=== PATIENT | female | born 1990 | race Caucasian/White ===

== ENCOUNTER → 2016-12-23 | Outpatient (CLI) | payer BC ==
[2016-12-23 10:16] LABS: HEMATOCRIT 42.7 % (37-47); MEAN CELL VOLUME 85.6 fL (80-100); MEAN CORPUSCULAR HEMOGLOBIN 28.1 pg (25-34); MEAN CORPUSCULAR HGB CONC 32.8 g/dl (32-36); MEAN PLATELET VOLUME 9.8 fL (7.4-10.4); PLATELET COUNT 326 K/uL (130-400); RED BLOOD COUNT 4.99 M/uL (4.2-5.4)
== END | disposition home or self-care (01) ==
LOC: C.LAB1850 09:08
PROVIDERS: ATTEND Physician Assistant
DX: R53.83 Other fatigue (principal)

== ENCOUNTER 2019-02-21 16:47 | Inpatient (IN) ==
[2019-02-21] MEDS ORDERED: OXYTOCIN 30 UNITS/500 ML BAG IV PRN ×3 (17:00→17:14)
--- NOTE | 2019-02-21 17:07 | History & Physical Report ---
Date of Service February 21, 2019 History of Present Illness Primary Care Provider: NO PCP patient is a Allergies Allergy/AdvReac Type Severity Reaction Status Date / Time No Known Drug Allergies Allergy Verified 02/21/19 16:18 Home Medications Home Medications Medication Instructions Recorded Confirmed Type 1 tab PO DAILY 01/15/19 02/21/19 History vitamin,calcium,txvbmtct-[id number] acid tablet Patient History Surgical History S/P tonsillectomy S/P wisdom tooth extraction Family History Uncle Family history of bicuspid aortic valve Grandmother (Paternal) Diabetes Grandfather (Maternal) Diabetes Grandmother (Maternal) Ovarian cancer Sister Thyroid disease Social History marital status: Smoking Status: Never smoker Hx Alcohol Use: No Results & Data Vital Signs (Past 12 Hours) Vital Signs Pulse BP 02/21/19 16:55 97 H 111/77 Code Status & VTE Plan VTE Prophylaxis Plan VTE Prophylaxis will be ordered: No
--- NOTE | 2019-02-21 17:31 | History & Physical Report ---
Date of Service February 21, 2019 Assessment & Plan (1) Bicuspid aortic valve: no special orders needed as there is no stenosis with normal function Present on Admission?: Yes (2) Amniotic fluid leaking: IUP at term with SPROM over 12 hours only irregular contractions now will start pitocin augmentation of labor. anticipate vaginal delivery. (3) 39 weeks gestation of : History of Present Illness Primary Care Provider: NO PCP Patient is a 28 yo white female EDC 03/03/19 who presents with leaking fluid since o530 this morning. no contractions but has been having some cramping. SPROM was confirmed at the office. GBS (-) complicated by bicuspid aortic valve. She recently was evaluated by cardiology & her echo shows normal function without stenosis. 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 Beliefs That Will Affect Care: None marital status: Current Living Situation: Spouse Other Information That Helps Us Care for You: No Feels Safe at Home: Yes Safety Concerns: Feels Safe At This Time Smoking Status: Never smoker Hx Alcohol Use: No Hx Substance Use: No Review of Systems All systems reviewed & are unremarkable except as noted in HPI & below Physical Exam Constitutional: WD/WN, vitals as above Respiratory: normal respiratory effort, lungs clear to auscultation Cardiovascular: RRR, no murmur, no edema Rate/Rhythm: regular rate and regular rhythm Gastrointestinal (Abdomen): normal bowel sounds, soft, nontender, no hepatosplenomegaly Psychiatric: A+Ox3, euthymic affect Genitourinary: Manual OB Exam: + cervical dilation 1 cm, + cervical effacement 50% and + station -2 OB Exam Monitor Tracing: + external FHT monitor used, + external uterine monitor used, + category I and + normal FHT variability Results & Data Vital Signs (Past 12 Hours) Vital Signs Pulse BP 02/21/19 16:55 97 H 111/77 Code Status & VTE Plan VTE Prophylaxis Plan VTE Prophylaxis will be ordered: No
[2019-02-21 17:35] LABS: Hemoglobin 12.8 g/dL (12.0-16.0); Mean Corpuscular Volume 82.4 fL (80-100); Mean Platelet Volume 10.3 fL (7.4-10.4); Platelet Count 254 K/uL (130-400); RDW Coefficient of Variation 13.5 % (11.5-14.5); RDW Standard Deviation 40.4 fL (36.4-46.3); Red Blood Count 4.49 M/uL (4.2-5.4); White Blood Count 19.24 K/uL (4.8-10.8)
[2019-02-21] MEDS: LACTATED RINGER'S 1,000 ML IV PRN ×2 (17:35→22:10)
[2019-02-21 17:45] LABS: Mean Corpuscular Hgb Conc 34.6 g/dL (32-36)
[2019-02-21] MEDS ORDERED: BUPIVACAINE 0.25% 30 ML VIAL ONE (23:14)
[2019-02-21] MEDS ORDERED: fentaNYL citrate 100 MCG/2 ML VIAL ONE (23:14)
[2019-02-21] MEDS ORDERED: ePHEDrine sulfate 50 MG/ML AMP ONE (23:14)
[2019-02-21] MEDS ORDERED: fentaNYL 2MCG/ML ROPIV 1.25MG/ML 100 ML BAG EPI ONE (23:15)
--- NOTE | 2019-02-21 23:50 | Anesthesiology Consultation ---
Date of Service February 21, 2019 Assessment & Plan Chart Review Chart Review: Patient NOT seen in Pre Admission Testing and Acceptable Risk for Labor Epidural Consults Requested none ASA ASA2 Proposed Anesthesia Anesthesia Type: Labor Epidural and CSE Risk / Benefits Reviewed With: PT / POA / Parent / Guardian, Accepts Plan and Informed Consent Obtained History Height/Weight Height: 5 ft 1 in Weight: 68.039 kg Allergies Allergy/AdvReac Type Severity Reaction Status Date / Time No Known Drug Allergies Allergy Verified 02/21/19 16:18 Medications Home Medications Medication Instructions Recorded Confirmed Last Taken 1 tab PO DAILY 01/15/19 02/21/19 02/21/19 vitamin,calcium,cpactsjj-zpqx-stmuj acid tablet Active Medications Generic Name Dose Route Start Last Admin Trade Name Freq PRN Reason Stop Dose Admin Lactated Ringer's 1,000 mls @ 125 mls/hr 02/21/19 17:00 02/21/19 22:10 Lr IV 02/23/19 16:59 125 mls/hr .Q8H PRN Administration L&D Protocol Protocol Oxytocin 30 units in 500 mls @ 5 mls/hr 02/21/19 17:06 02/21/19 22:10 Pitocin IV 02/23/19 17:05 0.3 units/hr .Q24H PRN 5 mls/hr Labor Induction/Augmentation Titration Protocol 0.3 UNITS/HR NPO Date Last Intake of Fluids: 02/21/19 Time Last Intake of Fluids: 23:00 Date Last Intake of Solids: 02/21/19 Time Last Intake of Solids: 05:00 Past Medical History Medical History Bicuspid aortic valve (Acute) (Acute) History of varicella Exercise / Class Metabolic Activity II 4-5 Yardwork/Stairs/Walk up hill Past Family History Family History Uncle Family history of bicuspid aortic valve Grandmother (Paternal) Diabetes Grandfather (Maternal) Diabetes Grandmother (Maternal) Ovarian cancer Sister Thyroid disease Past Surgical History Surgical History S/P tonsillectomy S/P wisdom tooth extraction Past Anesthesia History No Hx of Anesthesia Complications and No Family Hx of Anesthesia Complications History of PONV No Hx of PONV and No Hx of Motion Sickness Social History Smoking Status: Never smoker Hx Alcohol Use: No Hx Substance Use: No substance use type: does not use Review of Systems no chest pain or sob Physical Exam Vital Signs Last Vital Signs Temp 37.0 C 02/21/19 21:00 Pulse 80 02/21/19 23:35 Resp 20 02/21/19 22:45 BP 108/62 02/21/19 22:49 Pulse Ox 99 02/21/19 23:35 ENMT Mouth: no TMJ abnormality Thyromental Distance: > or= 3.5 Finger Breadths Mallampati Class: II Neck normal visual inspection Respiratory normal respiratory effort Auscultation: lungs clear to auscultation bilaterally Cardiovascular Rate/Rhythm: regular rate and regular rhythm Musculoskeletal Spine: normal cervical ROM Neurologic moves all extremities Psychiatric Orientation: alert and oriented x 3 Testing Laboratory Results 02/21/19 17:19
[2019-02-21] MEDS ORDERED: NALOXONE HCL 1 MG in SODIUM CHLORIDE 0.9% 1000ML 1,000 ML IV PRN (23:51)
[2019-02-21] MEDS ORDERED: NALOXONE HCL 0.4 MG/1 ML VIAL/CARP IV PRN (23:51)
[2019-02-21] MEDS ORDERED: DiphenhydrAMINE HCL 50 MG/ML VIAL IV PRN (23:51)
[2019-02-21] MEDS ORDERED: NALBUPHINE HCL INJ 10 MG/ML AMP IV PRN (23:51)
[2019-02-21] MEDS ORDERED: ONDANSETRON INJ 2 MG/ML 2 ML VIAL IV PRN (23:51)
[2019-02-22] MEDS: LACTATED RINGER'S 1,000 ML IV PRN ×3 (00:15→09:50)
[2019-02-22] MEDS: ePHEDrine sulfate 50 MG/ML AMP IV PRN ×2 (01:25→06:54)
[2019-02-22] MEDS ORDERED: fentaNYL 2MCG/ML ROPIV 1.25MG/ML 100 ML BAG EPI ONE ×2 (07:51→13:37)
[2019-02-22] MEDS: fentaNYL 2MCG/ML ROPIV 1.25MG/ML 100 ML BAG EPI PRN ×2 (07:54→13:39)
--- NOTE | 2019-02-22 08:59 | Labor Progress Brief Note ---
Date of Service February 22, 2019 Subjective Reason For Note: Other (Change of shift) The patient is a 28-year-old 1 para 0 with an EDC of 03 March at 38+ weeks gestational age who was admitted on 21 February with spontaneous rupture membranes. Membranes ruptured at approximately 05 30 on 21 February. The patient was seen in the office for routine OB check where rupture of membranes was diagnosed and the patient was sent to labor and delivery for evaluation. The patient was admitted here and started on Pitocin per induction protocol. She received an epidural for pain control. The patient's heart rate tracing had episodes of category 3 with decelerations requiring discontinuation of Pitocin. Pitocin was discontinued and tracing has stabilized category 2 with accelerations and good variability. Physician assuming care for the patient at this point. Patient had an unremarkable course. Her blood type is a\A positive, antibody negative, rubella immune, hepatitis B negative, negative cell free DNA screening, and negative MSAFP, normal 1 hour Glucola x2, and a negative third trimester beta strep culture. Assessment & Plan (1) Supervision of normal first : heart rate tracing category 2 with good variability and accelerations. Intrauterine pressure catheter placed to assess uterine activity. Intrauterine pressure catheter placed to evaluate contraction pattern. Contractions every 5 minutes mild at 25 mmHg of pressure. With the prolonged rupture of membranes Pitocin augmentation is necessary to progress the labor. Will start Pitocin per induction protocol and increase. Discussed plan with patient and her significant other. All questions answered. (2) Amniotic fluid leaking: Physical Exam Gastrointestinal (Abdomen): Gravid, vtx, (+) FHT's EFW 8 lbs Genitourinary: OB Exam Monitor Tracing: + category II Cervix: 6/100/0, IUPC placed Results & Data Vital Signs (Past 12 Hours) Vital Signs Temp Pulse Resp BP Pulse Ox 02/22/19 08:50 101 H 97 02/22/19 08:45 90 103/59 L 98 02/22/19 08:40 106 H 96 02/22/19 08:35 105 H 96 02/22/19 08:30 107 H 97 02/22/19 08:29 100 H 99/70 L 02/22/19 08:25 99 H 95 02/22/19 08:20 109 H 97 02/22/19 08:16 105 H 20 98/68 L 02/22/19 08:15 106 H 96 09/05/19 08:10 85 95 02/22/19 08:05 99 H 95 02/22/19 08:01 20 02/22/19 08:00 90 96 02/22/19 07:59 100 H 103/66 02/22/19 07:55 99 H 94 02/22/19 07:50 104 H 97 02/22/19 07:46 20 02/22/19 07:45 83 101/60 95 02/22/19 07:40 96 H 94 02/22/19 07:35 95 H 96 02/22/19 07:31 20 02/22/19 07:30 82 90/53 L 97 02/22/19 07:25 91 H 96 02/22/19 07:20 88 97 02/22/19 07:15 102 H 20 100 02/22/19 07:14 92 H 107/65 02/22/19 07:10 74 99 02/22/19 07:08 86 102/57 L 02/22/19 07:05 98.2 F 74 20 99 02/22/19 07:04 79 101/56 L 02/22/19 07:00 71 18 99 02/22/19 06:58 77 104/56 L 02/22/19 06:56 71 99/56 L 02/22/19 06:55 65 100 02/22/19 06:54 71 91/52 L 02/22/19 06:50 73 99 02/22/19 06:47 69 83/46 L 02/22/19 06:45 68 99 02/22/19 06:40 89 94 02/22/19 06:35 91 H 96 02/22/19 06:33 88 90/50 L 02/22/19 06:30 100 H 18 95 02/22/19 06:25 85 94 02/22/19 06:20 90 94 02/22/19 06:18 86 92/54 L 02/22/19 06:15 89 95 02/22/19 06:14 98.6 F 02/22/19 06:10 88 96 02/22/19 06:05 90 96 02/22/19 06:03 85 103/60 02/22/19 06:00 79 18 95 02/22/19 05:55 96 H 96 02/22/19 05:50 107 H 96 02/22/19 05:48 110 H 91/52 L 02/22/19 05:45 106 H 97 02/22/19 05:40 96 H 95 02/22/19 05:35 98 H 95 02/22/19 05:34 102 H 91/51 L 02/22/19 05:30 102 H 97 02/22/19 05:25 93 H 96 02/22/19 05:20 113 H 96 02/22/19 05:18 100 H 91/50 L 02/22/19 05:15 93 H 95 02/22/19 05:10 90 95 02/22/19 05:05 106 H 97 02/22/19 05:03 97 H 93/52 L 02/22/19 05:00 92 H 18 96 02/22/19 04:55 92 H 97 02/22/19 04:50 101 H 97 02/22/19 04:48 107 H 92/54 L 02/22/19 04:45 111 H 97 02/22/19 04:40 89 96 02/22/19 04:35 90 95 02/22/19 04:32 88 92/54 L 02/22/19 04:30 85 18 95 02/22/19 04:25 92 H 95 02/22/19 04:20 92 H 96 02/22/19 04:18 90 96/51 L 02/22/19 04:15 88 96 02/22/19 04:10 102 H 97 02/22/19 04:08 98.6 F 02/22/19 04:05 99 H 97 02/22/19 04:03 110 H 101/62 02/22/19 04:00 94 H 18 97 02/22/19 03:55 78 96 02/22/19 03:50 75 95 02/22/19 03:47 86 91/50 L 02/22/19 03:45 79 96 02/22/19 03:40 84 97 02/22/19 03:35 97 H 96 02/22/19 03:33 81 100/53 L 02/22/19 03:30 82 18 96 02/22/19 03:25 97 H 96 02/22/19 03:20 86 99 02/22/19 03:19 103 H 106/67 02/22/19 03:15 110 H 98 02/22/19 03:10 106 H 96 02/22/19 03:05 92 H 96 02/22/19 03:02 106 H 95/51 L 02/22/19 03:00 85 18 95 02/22/19 02:55 86 97 02/22/19 02:50 86 95 02/22/19 02:48 99 H 92/55 L 02/22/19 02:45 94 H 94 02/22/19 02:40 112 H 96 02/22/19 02:35 84 95 02/22/19 02:32 100 H 94/55 L 02/22/19 02:30 102 H 95 02/22/19 02:25 108 H 95 02/22/19 02:20 112 H 96 02/22/19 02:17 95 H 96/54 L 02/22/19 02:15 113 H 96 02/22/19 02:11 98.6 F 02/22/19 02:10 106 H 95 02/22/19 02:05 106 H 100 02/22/19 02:03 84 92/55 L 02/22/19 02:00 74 18 95 02/22/19 01:55 90 96 02/22/19 01:50 74 95 02/22/19 01:47 88 92/52 L 02/22/19 01:45 76 96 02/22/19 01:40 81 95 02/22/19 01:35 99 H 95 02/22/19 01:32 75 103/56 L 02/22/19 01:30 76 18 97 02/22/19 01:27 76 98/55 L 02/22/19 01:25 82 95 02/22/19 01:20 76 94 02/22/19 01:17 77 89/53 L 02/22/19 01:15 76 95 02/22/19 01:10 81 95 02/22/19 01:05 76 95 02/22/19 01:02 92 H 91/54 L 02/22/19 01:00 87 18 96 02/22/19 00:55 89 95 02/22/19 00:50 83 95 02/22/19 00:47 92 H 94/50 L 02/22/19 00:45 83 94 02/22/19 00:40 83 95 02/22/19 00:35 90 94 02/22/19 00:33 98.2 F 18 02/22/19 00:32 88 98/53 L 02/22/19 00:30 88 18 96 02/22/19 00:27 82 99/53 L 02/22/19 00:25 92 H 95 02/22/19 00:24 90 93 02/22/19 00:23 82 100/55 L 02/22/19 00:20 86 97 02/22/19 00:19 94 H 93/51 L 02/22/19 00:15 90 105/59 L 97 02/22/19 00:13 83 107/61 02/22/19 00:11 81 102/56 L 02/22/19 00:10 87 96 02/22/19 00:09 86 94/52 L 02/22/19 00:05 89 99 02/22/19 00:00 95 H 99 02/21/19 23:55 94 H 99 02/21/19 23:35 80 99 02/21/19 23:30 83 99 02/21/19 23:25 85 99 02/21/19 23:22 81 94 02/21/19 23:20 85 98 02/21/19 23:05 98.1 F 18 02/21/19 22:49 78 108/62 02/21/19 22:45 20 02/21/19 22:30 20 02/21/19 22:09 86 116/59 L 02/21/19 22:00 20 02/21/19 21:30 20 02/21/19 21:06 89 101/70 02/21/19 21:00 98.6 F 20
--- NOTE | 2019-02-22 12:21 | Labor Progress Brief Note ---
Date of Service February 22, 2019 Subjective Reason For Note: Routine Evaluation Assessment & Plan (1) 39 weeks gestation of : (2) Amniotic fluid leaking: - tracing Cat II - will begin 2nd stage Physical Exam Physical Exam: Cervix: Complete/(+)1 Results & Data Vital Signs (Past 12 Hours) Vital Signs Temp Pulse Resp BP Pulse Ox 02/22/19 12:15 92 H 99/57 L 94 02/22/19 12:10 78 96 02/22/19 12:05 82 94 02/22/19 12:01 20 02/22/19 12:00 90 96 02/22/19 11:59 79 97/60 L 02/22/19 11:55 79 97 02/22/19 11:50 80 97 02/22/19 11:46 65 101/60 02/22/19 11:45 77 98 02/22/19 11:40 96 H 97 02/22/19 11:35 88 99 02/22/19 11:31 98.4 F 20 02/22/19 11:30 76 93/55 L 99 02/22/19 11:25 117 H 99 02/22/19 11:20 87 97 02/22/19 11:16 83 112/70 02/22/19 11:15 85 96 02/22/19 11:10 91 H 97 02/22/19 11:05 97 H 96 02/22/19 11:01 16 02/22/19 11:00 97 H 97 02/22/19 10:59 107 H 104/70 02/22/19 10:55 110 H 96 02/22/19 10:50 84 96 02/22/19 10:46 20 02/22/19 10:45 94 H 96 02/22/19 10:44 93 H 102/64 02/22/19 10:40 94 H 95 02/22/19 10:35 99 H 96 02/22/19 10:31 16 02/22/19 10:30 87 102/62 95 02/22/19 10:25 83 96 02/22/19 10:20 83 96 02/22/19 10:16 87 103/64 02/22/19 10:15 92 H 95 02/22/19 10:10 88 95 02/22/19 10:05 94 H 96 02/22/19 10:00 98.4 F 86 20 101/63 96 02/22/19 09:55 82 96 02/22/19 09:50 90 99 02/22/19 09:47 20 02/22/19 09:46 82 111/65 02/22/19 09:45 81 100 02/22/19 09:40 87 100 02/22/19 09:35 92 H 100 02/22/19 09:31 20 02/22/19 09:30 84 110/72 100 02/22/19 09:25 89 100 02/22/19 09:20 96 H 98 02/22/19 09:15 76 97 02/22/19 09:14 73 92/50 L 02/22/19 09:10 74 97 02/22/19 09:05 75 96 02/22/19 09:01 97.9 F 20 02/22/19 09:00 87 91/53 L 97 02/22/19 08:55 104 H 98 02/22/19 08:50 101 H 97 02/22/19 08:47 20 02/22/19 08:45 90 103/59 L 98 02/22/19 08:40 106 H 96 02/22/19 08:35 105 H 96 02/22/19 08:31 20 02/22/19 08:30 107 H 97 02/22/19 08:29 100 H 99/70 L 02/22/19 08:25 99 H 95 02/22/19 08:20 109 H 97 02/22/19 08:16 105 H 20 98/68 L 02/22/19 08:15 106 H 96 02/22/19 08:10 85 95 02/22/19 08:05 99 H 95 02/22/19 08:01 20 02/22/19 08:00 90 96 02/22/19 07:59 100 H 103/66 02/22/19 07:55 99 H 94 02/22/19 07:50 104 H 97 02/22/19 07:46 20 02/22/19 07:45 83 101/60 95 02/22/19 07:40 96 H 94 02/22/19 07:35 95 H 96 02/22/19 07:31 20 02/22/19 07:30 82 90/53 L 97 02/22/19 07:25 91 H 96 02/22/19 07:20 88 97 02/22/19 07:15 102 H 20 100 02/22/19 07:14 92 H 107/65 02/22/19 07:10 74 99 02/22/19 07:08 86 102/57 L 02/22/19 07:05 98.2 F 74 20 99 02/22/19 07:04 79 101/56 L 02/22/19 07:00 71 18 99 02/22/19 06:58 77 104/56 L 02/22/19 06:56 71 99/56 L 02/22/19 06:55 65 100 02/22/19 06:54 71 91/52 L 02/22/19 06:50 73 99 02/22/19 06:47 69 83/46 L 02/22/19 06:45 68 99 02/22/19 06:40 89 94 02/22/19 06:35 91 H 96 02/22/19 06:33 88 90/50 L 02/22/19 06:30 100 H 18 95 02/22/19 06:25 85 94 02/22/19 06:20 90 94 02/22/19 06:18 86 92/54 L 02/22/19 06:15 89 95 02/22/19 06:14 98.6 F 02/22/19 06:10 88 96 02/22/19 06:05 90 96 02/22/19 06:03 85 103/60 02/22/19 06:00 79 18 95 02/22/19 05:55 96 H 96 02/22/19 05:50 107 H 96 02/22/19 05:48 110 H 91/52 L 02/22/19 05:45 106 H 97 02/22/19 05:40 96 H 95 02/22/19 05:35 98 H 95 02/22/19 05:34 102 H 91/51 L 02/22/19 05:30 102 H 97 02/22/19 05:25 93 H 96 02/22/19 05:20 113 H 96 02/22/19 05:18 100 H 91/50 L 02/22/19 05:15 93 H 95 02/22/19 05:10 90 95 02/22/19 05:05 106 H 97 02/22/19 05:03 97 H 93/52 L 02/22/19 05:00 92 H 18 96 02/22/19 04:55 92 H 97 02/22/19 04:50 101 H 97 02/22/19 04:48 107 H 92/54 L 02/22/19 04:45 111 H 97 02/22/19 04:40 89 96 02/22/19 04:35 90 95 02/22/19 04:32 88 92/54 L 02/22/19 04:30 85 18 95 02/22/19 04:25 92 H 95 02/22/19 04:20 92 H 96 02/22/19 04:18 90 96/51 L 02/22/19 04:15 88 96 02/22/19 04:10 102 H 97 02/22/19 04:08 98.6 F 02/22/19 04:05 99 H 97 02/22/19 04:03 110 H 101/62 02/22/19 04:00 94 H 18 97 02/22/19 03:55 78 96 02/22/19 03:50 75 95 02/22/19 03:47 86 91/50 L 02/22/19 03:45 79 96 02/22/19 03:40 84 97 02/22/19 03:35 97 H 96 02/22/19 03:33 81 100/53 L 02/22/19 03:30 82 18 96 02/22/19 03:25 97 H 96 02/22/19 03:20 86 99 02/22/19 03:19 103 H 106/67 02/22/19 03:15 110 H 98 02/22/19 03:10 106 H 96 02/22/19 03:05 92 H 96 02/22/19 03:02 106 H 95/51 L 02/22/19 03:00 85 18 95 02/22/19 02:55 86 97 02/22/19 02:50 86 95 02/22/19 02:48 99 H 92/55 L 02/22/19 02:45 94 H 94 02/22/19 02:40 112 H 96 02/22/19 02:35 84 95 02/22/19 02:32 100 H 94/55 L 02/22/19 02:30 102 H 95 02/22/19 02:25 108 H 95 02/22/19 02:20 112 H 96 09/05/19 02:17 95 H 96/54 L 02/22/19 02:15 113 H 96 02/22/19 02:11 98.6 F 02/22/19 02:10 106 H 95 02/22/19 02:05 106 H 100 02/22/19 02:03 84 92/55 L 02/22/19 02:00 74 18 95 02/22/19 01:55 90 96 02/22/19 01:50 74 95 02/22/19 01:47 88 92/52 L 02/22/19 01:45 76 96 02/22/19 01:40 81 95 02/22/19 01:35 99 H 95 02/22/19 01:32 75 103/56 L 02/22/19 01:30 76 18 97 02/22/19 01:27 76 98/55 L 02/22/19 01:25 82 95 02/22/19 01:20 76 94 02/22/19 01:17 77 89/53 L 02/22/19 01:15 76 95 02/22/19 01:10 81 95 02/22/19 01:05 76 95 02/22/19 01:02 92 H 91/54 L 02/22/19 01:00 87 18 96 02/22/19 00:55 89 95 02/22/19 00:50 83 95 02/22/19 00:47 92 H 94/50 L 02/22/19 00:45 83 94 02/22/19 00:40 83 95 02/22/19 00:35 90 94 02/22/19 00:33 98.2 F 18 02/22/19 00:32 88 98/53 L 02/22/19 00:30 88 18 96 02/22/19 00:27 82 99/53 L 02/22/19 00:25 92 H 95 02/22/19 00:24 90 93 02/22/19 00:23 82 100/55 L 02/22/19 00:20 86 97
--- NOTE | 2019-02-22 14:56 | Delivery Summary ---
Vaginal Delivery Summary Date of Service February 22, 2019 Findings: Viable male with Apgars of 6 and 8 delivered by low outlet fo rceps after failed vacuum baby delivered over a midline episiotomy with a right labial laceration. Nuchal cord x1 and body cord reduced with delivery. Cord gases and cord blood samples obtained. Placenta delivered spontaneously. Laceration and episiotomy repaired in routine fashion. Estimated blood loss 300 cc Labor course: The patient is a 28-year-old 1 para 0 with an EDC of 03 March at 38+ weeks gestational age who was admitted on 21 February with spontaneous rupture membranes. Membranes ruptured at approximately 05 30 on 21 February. The patient was seen in the office for routine OB check where rupture of membranes was diagnosed and the patient was sent to labor and delivery for evaluation. The patient was admitted here and started on Pitocin per induction protocol. She received an epidural for pain control. The patient's heart rate tracing had episodes of category 3 with decelerations requiring discontinuation of Pitocin. Pitocin was discontinued and tracing has stabilized category 2 with accelerations and good variability. Physician assuming care for the patient at this point. Patient had an unremarkable course. Her blood type is a\A positive, antibody negative, rubella immune, hepatitis B negative, negative cell free DNA screening, and negative MSAFP, normal 1 hour Glucola x2, and a negative third trimester beta strep culture. The patient was admitted and started on Pitocin induction. She became uncomfortable and anesthesia was consulted and an epidural was placed. The patient had episodes of variable decelerations which required discontinuation of the Pitocin. The patient progressed to 4 cm 90% effaced and -1 station when delivering physician assumed care for the patient. Pitocin was reinitiated and over the next 5 hours the patient progressed to full dilatation and began her second stage. During the second stage the patient was felt to have a category 2 tracing. Approximately 2 hours after initiation of her second stage the vertex was on the perineum. Tracing at this time became category 3 with deep variable decelerations and loss of variability. Decision was made to move forward with an operative vaginal delivery. The patient gave informed consent verbally for a vacuum delivery. With the next 2 contractions the vacuum was applied and traction was applied. There was minimal descent of the vertex with the vacuum. At this point a decision was made to proceed with low outlet forceps with a [place] forcep using a retraction handle. Verbal consent was again obtained from the patient. Over the next contraction the baby was delivered over midline episiotomy nuchal cord x1 reduced on the perineum as well as a body cord with delivery. The cord was clamped and cut and the baby was taken over to the resuscitation stand. Cord gases and cord blood samples were obtained at the placenta was delivered spontaneously and sent for pathological evaluation. Inspection of the perineum showed a second-degree right labial laceration along with a midline episiotomy. Both of those were repaired with 4-0 Vicryl in a routine fashion. Estimated blood loss was 300 cc. Sponge and needle count was correct.
[2019-02-22 15:04] LABS: Base Excess Cord Venous Blood -6.1 mEq/L (-7.7-1.9); Cord Venous Blood HCO3 19 mmol/L (18.4-26.8); Cord Venous Blood PCO2 38 mmHg (30.4-57.2); Cord Venous Blood PO2 30 mmHg (14.1-43.3); Cord Venous Blood pH 7.32 (7.20-7.44); O2 Saturation Cord Venous Bld 67.5 % (<68)
[2019-02-22] MEDS ORDERED: BENZOCAINE 20% AER SPR 82.5 GM CAN EXT PRN (15:16)
[2019-02-22] MEDS ORDERED: OXYTOCIN 30 UNITS/500 ML BAG IV PRN (15:16)
[2019-02-22] MEDS ORDERED: DIPHTHERIA/TETANUS/PERTUSSIS 0.5 ML SYR/VIAL IM ONE (15:16)
[2019-02-22] MEDS ORDERED: ACETAMINOPHEN W/CODEINE #3 1 TAB PO PRN (15:16)
[2019-02-22] MEDS ORDERED: SUPERCREAM 0.870% 15 GM JAR EXT PRN (15:16)
[2019-02-22] MEDS ORDERED: HYDROCORTISONE ACETATE 25 MG SUPP PR PRN (15:16)
--- NOTE | 2019-02-22 15:28 | Anesthesia Procedure Note ---
Date of Service February 22, 2019 Anesthesia Post Epidural Note Vital Signs Vital Signs: Temp Pulse Resp BP Pulse Ox 37.0 C 99 H 20 119/62 92 02/22/19 13:13 02/22/19 15:14 02/22/19 13:31 02/22/19 15:14 02/22/19 14:32 Notes Mental Status: alert / awake / arousable and participated in evaluation Patient Amnestic to Procedure: No Nausea / Vomiting: adequately controlled Pain: adequately controlled Airway Patency, RR, SpO2: stable & adequate BP & HR: stable & adequate Hydration State: stable & adequate Neuraxial Anesthesia: was administered and sensory block is resolving Anesthetic Complications: no major complications apparent and Pt Satisfied with anesthetic care Epidural: Removed without complications and With tip intact
[2019-02-22] MEDS: IBUPROFEN 600 MG TAB PO PRN (17:18)
[2019-02-22] MEDS: DOCUSATE SODIUM 100 MG CAP PO SCH (20:31)
[2019-02-22] MEDS: ACETAMINOPHEN 325 MG TAB PO PRN (21:22)
[2019-02-23] MEDS: IBUPROFEN 600 MG TAB PO PRN ×2 (06:52→16:38)
--- NOTE | 2019-02-23 07:25 | Obstetrical Progress Note ---
Date of Service <Sher Serna DO - Last Filed: 02/23/19 07:25> February 23, 2019 Assessment & Plan <DO Jaci Canas Last Filed: 02/23/19 07:25> (1) : -PPD#1 -Vitals reviewed, WNL (Tmax 37.0) - GBS -, Blood Type A+ - Clinically stable. - Feels well today. Eating well, voiding well, ambulating well. - Pain well controlled. - Routine post- care - Questions answered this morning. Day #:: 1 Subjective <DO Jaci Canas Last Filed: 02/23/19 07:25> Ambulation: ambulating normally Voiding: no voiding problems Passing Gas:: Yes Diet Tolerance:: regular diet Lochia:: Small Feeding Type:: breast feeding Current Pain Level(1-10): 2 (improves with analgesics) Patient is a 28 PPD#1. Patient states that she is feeling well today and that her pain is well controlled. She has no other complaints at this time. Constitutional: no fever and no chills Respiratory: no cough, no dyspnea and no wheezing Cardiovascular: no chest pain, no dyspnea, no palpitations, no edema and no calf pain Breast: + breast pain (nipple pain with feeding) Gastrointestinal: no abdominal pain, no nausea and no vomiting Genitourinary (female): no dysuria and no difficulty urinating Neurologic: no headache(s) Physical Exam <DO Jaci Canas Last Filed: 02/23/19 07:25> Constitutional WD/WN, vitals as above Respiratory normal respiratory effort, lungs clear to auscultation Cardiovascular Rate/Rhythm: regular rate and regular rhythm Heart Sounds: normal S1 and normal S2; no click, no gallop, no murmur and no cardiac rub Extremities: no calf tenderness and no edema Gastrointestinal (Abdomen) Inspection/Auscultation: abdomen normal to inspection and normal bowel sounds Percussion/Palpation: + abdomen tender (Slight tenderness to palpation of lower quadrants of abdomen) and abdomen soft Genitourinary OB Exam Abdomen: + fundal height Fundus: + firm and + relation to umbilicus (2cm below); not tender and not boggy Results & Data <DO Jaci Canas Last Filed: 02/23/19 07:25> Vital Signs (Past 12 Hours) Vital Signs Temp Pulse Resp BP 02/23/19 03:40 36.9 C 79 18 93/61 L 02/22/19 23:40 36.5 C 81 18 95/65 L Medications Administered Current Inpatient Medications Acetaminophen (Tylenol) 650 mg PO Q6H PRN PRN Reason: Pain/KRAUS/Fever Stop: 03/24/19 15:15 Last Admin: 02/22/19 21:22 Dose: 650 mg Documented by: Acetaminophen/Codeine Phosphate (Tylenol W/Codeine #3) 1 - 2 tab PO Q4H PRN PRN Reason: Pain not controlled with... Stop: 03/24/19 15:15 Benzocaine (Dermoplast Pain Relieving [place]) 1 appln EXT PRN PRN PRN Reason: Perineal Discomfort Stop: 03/24/19 15:15 Last Admin: 02/22/19 17:18 Dose: 82.5 appln Documented by: Bisacodyl (Dulcolax) 5 mg PO 1999 [facility] Stop: 02/23/19 20:01 Cocaine HCl (Supercream 0.870%) 1 gm EXT BID PRN PRN Reason: Hemorrhoidal Inflammation Stop: 03/08/19 15:15 Last Admin: 02/22/19 20:31 Dose: 15 gm Documented by: Docusate Sodium (Colace) 100 mg PO DAILY@08,21 [facility] Stop: 03/24/19 20:59 Last Admin: 02/22/19 20:31 Dose: 100 mg Documented by: Ferrous Sulfate (Feosol) 325 mg PO DAILY@08 [facility] Stop: 03/25/19 07:59 Hydrocortisone (Anusol Hc) 25 mg [place] BID PRN PRN Reason: Hemorrhoidal Inflammation Stop: 03/24/19 15:15 Oxytocin (Pitocin) 30 units in 500 mls @ 333.333 mls/hr IV .Q1H30M PRN; Protocol PRN Reason: Bleeding Control Stop: 03/24/19 15:15 Ibuprofen (Motrin) 600 mg PO Q4H PRN PRN Reason: Pain/KRAUS/Cramping/Fever Stop: 03/24/19 14:52 Last Admin: 02/23/19 06:52 Dose: 600 mg Documented by: Curtat Multivit/Parrish/Iron/Folic Ac ( Vitamin) 1 tab PO DAILY@08 [facility] Stop: 03/25/19 07:59 <Alonzo Negrete Jr, MD, FACOG - Last Filed: 02/23/19 07:49> Co-Signing Physician Notes Resident Physician Supervision Note: I was present with Dr. Bustos during the history and exam. I discussed the case with the resident and agree with the findings and plan as documented in the note. Any exceptions or clarifications are listed here: Reviewed delivery with patient. Doing well. Documented By: Alonzo Negrete Jr, MD, FACOG Resident Activity Tracking <Sher Serna DO - Last Filed: 02/23/19 07:25> Resident Involvement: Resident Care Provided Care Provided: OB Delivery
[2019-02-23] MEDS: FERROUS SULFATE 325 MG TAB PO SCH (07:52)
[2019-02-23] MEDS: PRENATAL VITAMIN 1 TAB PO SCH (07:52)
[2019-02-23] MEDS: DOCUSATE SODIUM 100 MG CAP PO SCH ×2 (07:52→20:07)
[2019-02-23] MEDS ORDERED: BISACODYL 5 MG TABEC PO SCH (20:00)
[2019-02-23] MEDS: ACETAMINOPHEN 325 MG TAB PO PRN (23:48)
[2019-02-24] MEDS: ACETAMINOPHEN 325 MG TAB PO PRN (05:06)
--- NOTE | 2019-02-24 06:31 | Obstetrical Progress Note ---
Date of Service <Sher Serna DO - Last Filed: 02/24/19 06:31> February 24, 2019 Assessment & Plan <DO Jaci Canas Last Filed: 02/24/19 06:31> (1) : -PPD#2 -Vitals reviewed, WNL (Tmax 36.9) - GBS -, Blood Type A+ - Clinically stable. - Feels well today. Eating well, voiding well, ambulating well. - Pain well controlled. - Routine post- care - Questions answered this morning. - Counseled on discharge, follow up, and medications. Day #:: 2 Subjective <DO Jaci Canas Last Filed: 02/24/19 06:31> Ambulation: ambulating normally Voiding: no voiding problems Passing Gas:: Yes Diet Tolerance:: regular diet Lochia:: Moderate Current Pain Level(1-10): 1 (improves with analgesics) Patient is a 28 PPD#2. Patient states that she is feeling well today and that her pain is well controlled. She has no other complaints at this time. Constitutional: no fever and no chills Respiratory: no cough, no dyspnea and no wheezing Cardiovascular: no chest pain, no dyspnea, no palpitations, no edema and no calf pain Breast: + breast pain (nipple pain with feeding) Gastrointestinal: no abdominal pain, no nausea and no vomiting Genitourinary (female): no dysuria and no difficulty urinating Neurologic: no headache(s) Physical Exam <DO Jaci Canas Last Filed: 02/24/19 06:31> Constitutional WD/WN, vitals as above Respiratory normal respiratory effort, lungs clear to auscultation Cardiovascular Rate/Rhythm: regular rate and regular rhythm Heart Sounds: normal S1 and normal S2; no click, no gallop, no murmur and no cardiac rub Extremities: no calf tenderness and no edema Gastrointestinal (Abdomen) Inspection/Auscultation: abdomen normal to inspection and normal bowel sounds Percussion/Palpation: abdomen soft; abdomen nontender Genitourinary OB Exam Abdomen: + fundal height Fundus: + firm and + relation to umbilicus (4cm below); not tender and not boggy Results & Data <DO Jaci Canas Last Filed: 02/24/19 06:31> Vital Signs (Past 12 Hours) Vital Signs Temp Pulse Resp BP Pulse Ox 02/24/19 01:22 36.5 C 83 14 108/70 97 02/23/19 20:00 36.9 C 80 18 106/74 Medications Administered Current Inpatient Medications Acetaminophen (Tylenol) 650 mg PO Q6H PRN PRN Reason: Pain/KRAUS/Fever Stop: 03/24/19 15:15 Last Admin: 02/24/19 05:06 Dose: 650 mg Documented by: Acetaminophen/Codeine Phosphate (Tylenol W/Codeine #3) 1 - 2 tab PO Q4H PRN PRN Reason: Pain not controlled with... Stop: 03/24/19 15:15 Benzocaine (Dermoplast Pain Relieving [place]) 1 appln EXT PRN PRN PRN Reason: Perineal Discomfort Stop: 03/24/19 15:15 Last Admin: 02/22/19 17:18 Dose: 82.5 appln Documented by: Cocaine HCl (Supercream 0.870%) 1 gm EXT BID PRN PRN Reason: Hemorrhoidal Inflammation Stop: 03/08/19 15:15 Last Admin: 02/22/19 20:31 Dose: 15 gm Documented by: Docusate Sodium (Colace) 100 mg PO DAILY@08,21 [facility] Stop: 03/24/19 20:59 Last Admin: 02/23/19 20:07 Dose: 100 mg Documented by: Ferrous Sulfate (Feosol) 325 mg PO DAILY@08 [facility] Stop: 03/25/19 07:59 Last Admin: 02/23/19 07:52 Dose: 325 mg Documented by: Hydrocortisone (Anusol Hc) 25 mg [place] BID PRN PRN Reason: Hemorrhoidal Inflammation Stop: 03/24/19 15:15 Oxytocin (Pitocin) 30 units in 500 mls @ 333.333 mls/hr IV .Q1H30M PRN; Protocol PRN Reason: Bleeding Control Stop: 03/24/19 15:15 Ibuprofen (Motrin) 600 mg PO Q4H PRN PRN Reason: Pain/KRAUS/Cramping/Fever Stop: 03/24/19 14:52 Last Admin: 02/23/19 16:38 Dose: 600 mg Documented by: Prenat Multivit/Communications Tower Climber/Iron/Folic Ac ( Vitamin) 1 tab PO DAILY@08 [facility] Stop: 03/25/19 07:59 Last Admin: 02/23/19 07:52 Dose: 1 tab Documented by: <Shelley Seo MD, FACOG - Last Filed: 02/24/19 07:43> Co-Signing Physician Notes Resident Physician Supervision Note: I interviewed and examined the patient. Discussed with Dr. Serna and agree with findings and plan as documented in the note. Any exceptions or clarifications are listed here: Doing well. Plan d/c. Instructions given. Documented By: Shelley Seo MD, FACOG Resident Activity Tracking <Sher Serna DO - Last Filed: 02/24/19 06:31> Resident Involvement: Resident Care Provided Care Provided: OB Delivery
[2019-02-24 06:36] LABS: Hematocrit (blood only) 35.2 % (37-47); Hemoglobin 11.8 g/dL (12.0-16.0)
[2019-02-24] MEDS: PRENATAL VITAMIN 1 TAB PO SCH (08:09)
[2019-02-24] MEDS: DOCUSATE SODIUM 100 MG CAP PO SCH (08:09)
[2019-02-24] MEDS: FERROUS SULFATE 325 MG TAB PO SCH (08:09)
--- NOTE | 2019-02-26 09:05 | Discharge Summary ---
Date of Service February 26, 2019 Admission HPI Per Admitting Provider The patient is a 28-year-old 1 para 0 with an EDC of 03 March at 38+ weeks gestational age who was admitted on 21 February with spontaneous rupture membranes. Membranes ruptured at approximately 05 30 on 21 February. The patient was seen in the office for routine OB check where rupture of membranes was diagnosed and the patient was sent to labor and delivery for evaluation. Patient had an unremarkable course. Her blood type is a\A positive, antibody negative, rubella immune, hepatitis B negative, negative cell free DNA screening, and negative MSAFP, normal 1 hour Glucola x2, and a negative third trimester beta strep culture. Admission Exam (Per Admitting) Constitutional WD/WN, vitals as above Respiratory normal respiratory effort, lungs clear to auscultation Cardiovascular RRR, no murmur, no edema Rate/Rhythm: regular rate and regular rhythm Gastrointestinal (Abdomen) normal bowel sounds, soft, nontender, no hepatosplenomegaly Psychiatric A+Ox3, euthymic affect Genitourinary Manual OB Exam: + cervical dilation + 1 cm, + cervical effacement + 50% and + station + -2 OB Exam Monitor Tracing: + category I Discharge Data Consultations 02/21/19 17:01 Consult Anesthesiology Stat Hospital Course (1) Amniotic fluid leaking: The patient was admitted and started on Pitocin induction. She became uncomfortable and anesthesia was consulted and an epidural was placed. The patient had episodes of variable decelerations which required discontinuation of the Pitocin. The patient progressed to 4 cm 90% effaced and -1 station when delivering physician assumed care for the patient. Pitocin was reinitiated and over the next 5 hours the patient progressed to full dilatation and began her second stage. During the second stage the patient was felt to have a category 2 tracing. Approximately 2 hours after initiation of her second stage the vertex was on the perineum. Tracing at this time became category 3 with deep variable decelerations and loss of variability. Decision was made to move forward with an operative vaginal delivery. The patient gave informed consent verbally for a vacuum delivery. With the next 2 contractions the vacuum was applied and traction was applied. There was minimal descent of the vertex with the vacuum. At this point a decision was made to proceed with low outlet forceps with a Braswell forcep using a retraction handle. Verbal consent was again obtained fro m the patient. Over the next contraction the baby was delivered over midline episiotomy nuchal cord x1 reduced on the perineum as well as a body cord with delivery. The cord was clamped and cut and the baby was taken over to the resuscitation stand. Cord gases and cord blood samples were obtained at the placenta was delivered spontaneously and sent for pathological evaluation. Inspection of the perineum showed a second-degree right labial laceration along with a midline episiotomy. Both of those were repaired with 4-0 Vicryl in a routine fashion. Estimated blood loss was 300 cc. Sponge and needle count was correct. the patient did well H&H came back at 11 and 33. Patient was discharged home on the second day with routine discharge instructions. She will follow-up in the office in 6 weeks time for a check but as always she is instructed to call with any questions problems or difficulties.
== END 2019-02-24 11:20 | disposition home or self-care (01) | DRG 807 ==
LOC: OPB 16:47 → 4S1 16:50 → 4S2 02-22 18:12

== ENCOUNTER 2021-08-28 08:33 | Inpatient (IN) ==
--- NOTE | 2021-08-21 10:57 | Anesthesiology Consultation ---
Date of Service August 21, 2021 Assessment & Plan (1) Encounter for pre-operative examination: Chart Review Chart Review: carpentry specialist initiated -Discussed with Dr. Toussaint- pt with bicuspid AV (no noted stenosis or regurgitation)- pt can proceed as scheduled Per nursing assessment 08/21/2021, patient denies any recent travel. No known Covid infection in the past 90 days. Patient is fully vaccinated for Covid. No known Covid positive exposures or Covid related symptoms. Preop Covid testing scheduled 08/26/21= will await results Patient seen by lead nitrate processor 07/28/2021 = patient seen for follow-up with history of bicuspid aortic valve (without stenosis, regurgitation, or evidence of aortic path). Patient is currently 32 weeks present. No complaints today. Patient remains physically active on daily basis caring for her home, her child and working. No limiting cardiopulmonary symptoms with day-to-day activities. Patient scheduled for upcoming 08/28/2021we will update echocardiogram prior to procedure. (Per cardio communication note 08/16/2021atient's echo demonstrates stable findingsnormal heart pumping functionbicuspid aortic valve without stenosis regurgitationoverall no change from previous study) Patient seen by cardiology clinic on 06/02/2021 = patient referred for assessment echocardiography as a new patient due to her having bicuspid aortic valve. Patient has not developed any significant aortic stenosis or insufficiency at this time nor does she have any signs of aortic pathology on her most recent imaging. Does have a strong family history of bicuspid aortic valve on father side. Father and uncle also have hypertrophic CM. Patient's otherwise uncomplicated. echocardiogram showed structurally normal heart. No evidence of major cardiac disease detected. Normal biventricular systolic function. echocardiographic cannot specifically rule out bicuspid aortic valve and given patient's personal history and strong family history recommend routine assessment of the baby's heart after delivery. I do not see any contraindications from a cardiac standpoint to delivering at [facility]. History Surgery Operation Date: 08/28/21 10:30 Proposed Procedures p Section in LD (Delivery of Baby through Abdominal Incision) - Jackeline Lipscomb, Height/Weight Height: 5 ft 1 in Weight: 68.039 kg Allergies Allergy/AdvReac Type Severity Reaction Status Date / Time No Known Drug Allergies Allergy Verified 08/21/21 07:36 Medications Home Medications Medication Instructions Recorded Confirmed Last Taken prenat.vits,dante,[id number] 1 tab PO PM 01/15/19 08/21/21 02/21/19 cholecalciferol (vitamin D3) 25 25 mcg PO PM 08/21/21 08/21/21 Unknown mcg (1,000 unit) chewable tablet (Vitamin D3) Past Medical History Medical History Bicuspid aortic valve Folll[place] with Dr. Swartz Cardiac murmur Has had since History of varicella Past Family History Family History Uncle Family history of bicuspid aortic valve Grandmother (Paternal) Diabetes Grandfather (Maternal) Diabetes Grandmother (Maternal) Ovarian cancer Sister Thyroid disease Denies family history of Breast cancer Colorectal cancer Past Surgical History Surgical History S/P tonsillectomy S/P wisdom tooth extraction Social History Smoking Status: Never smoker Do You Dip or Chew Tobacco: No Hx Alcohol Use: No Hx Substance Use: No substance use type: does not use Lab Results Anesthesia Preop Results Results Anesthesia Widget: Hgb 12.9 g/dL (12.0-16.0) 06/26/21 Hct 37.8 % (37-47) 06/26/21 Urine Color Yellow 06/26/21 Urine Appearance Clear (Clear) 06/26/21 Urine pH 6.5 (4.5-7.5) 06/26/21 Urine Specific [place] 1.007 (1.000-1.030) 06/26/21 Urine Protein Negative (Negative) 06/26/21 Urine Glucose (UA) Negative (Negative) 06/26/21 Urine Ketones Negative (Negative) 06/26/21 Urine Blood Negative (Negative) 06/26/21 Urine Nitrite Negative (Negative) 06/26/21 Urine Bilirubin Negative (Negative) 06/26/21 Urine Urobilinogen Negative (Negative) 06/26/21 Urine Leukocyte Esterase Trace (Negative) H 06/26/21 Urine WBC (Auto) 1-5 /hpf (0-5) 06/26/21 Urine RBC (Auto) 0-4 /hpf (0-4) 06/26/21 Urine Hyaline Casts (Auto) 0 /lpf (0-5) 06/26/21 Urine Epithelial Cells (Auto) >30 /lpf (0-5) H 06/26/21 Urine Bacteria (Auto) Negative (Negative) 06/26/21 Testing Echocardiogram Date: 08/07/21 EF: 55 to 60% LV Function: normal RWMA: + none Other Findings: no LVH or no diastolic dysfunction Bicuspid aortic valve without stenosis or regurgitation. No significant change from prior study on 02/07/2019.
--- NOTE | 2021-08-21 21:19 | History & Physical Report ---
Date of Service August 21, 2021 Assessment & Plan (1) Placenta previa: Plan: Plan for section. Aware of risks of bleeding, delivery risks. History of Present Illness Chief Complaint: section Primary Care Provider: HERNANDO PCP 30yo with EDC 09/18/21 Patient history of Aortic Bicuspid Valve -f/u with cardiology 08/25 -needs echo, sched jun 02, psu - wnl, rec routine echo, consider childhood f/u for hx cardiomyopathy (SLN) Placenta previa--recheck 32wks - still present at 32 wks -deliver at 36-37 11/24 per acog -follow up u/s at 36wks C/S SCHEDULED FOR 08/28/[address] PETTY AND DR[address] MOREL ASSIST. NEEDS COVID TEST ON 08/26/2021-ORDERED s/p J&J vaccine, Pfizer booster Jose had flu shot. Allergies Allergy/AdvReac Type Severity Reaction Status Date / Time No Known Drug Allergies Allergy Verified 08/21/21 07:36 Home Medications Medication Instructions Recorded Confirmed Type prenat.vits,dante,[id number] 1 tab PO PM 01/15/19 08/21/21 History cholecalciferol (vitamin D3) 25 25 mcg PO PM 08/21/21 08/21/21 History mcg (1,000 unit) chewable tablet (Vitamin D3) Patient History Medical History Bicuspid aortic valve Folll[place] with Dr. Swartz Cardiac murmur Has had since History of varicella Surgical History S/P tonsillectomy S/P wisdom tooth extraction Family History Uncle Family history of bicuspid aortic valve Grandmother (Paternal) Diabetes Grandfather (Maternal) Diabetes Grandmother (Maternal) Ovarian cancer Sister Thyroid disease Denies family history of Breast cancer Colorectal cancer Social History Smoking Status: Never smoker Second Hand Exposure: No; Hx Alcohol Use: No Hx Substance Use: No Preferred Language: Maori Communication Ability: Effective Visual Impairment: No Limitations Hearing Ability: Normal Alodize Machine Operator Required: No Beliefs That Will Affect Care: None marital status: marital status details: Shaggy Sams (29) [phone] Current Living Situation: Spouse and Family Current Living Situation Comment: lives with family. 2 dogs and 1 cat. Spouse changning litter current occupational status: employed current occupation: Teacher Feels Safe at Home: Yes Seatbelt Use: always Assistive Devices: None Review of Systems All systems reviewed & are unremarkable except as noted in HPI & below Physical Exam Constitutional: WD/WN, vitals as above Respiratory: normal respiratory effort, lungs clear to auscultation no respiratory distress Cardiovascular: Rate/Rhythm: regular rate and regular rhythm Gastrointestinal (Abdomen): Inspection/Auscultation: abdomen normal to inspe ction Percussion/Palpation: abdomen soft; abdomen nontender Gravid. No s/s chorio or abruption. Skin: no rashes, warm and dry Psychiatric: A+Ox3, euthymic affect Coding Level of Care Code None Diagnoses Placenta previa O44.00
[2021-08-28] MEDS ORDERED: OXYTOCIN 30 UNITS/500 ML BAG IV PRN (10:28)
[2021-08-28] MEDS ORDERED: LACTATED RINGER'S 1,000 ML IV PRN (10:28)
[2021-08-28] MEDS ORDERED: LACTATED RINGER'S 1,000 ML IV SCH ×2 (10:45→17:57)
[2021-08-28] MEDS ORDERED: CITRIC ACID/SODIUM CITRATE 15 ML UDC PO SCH (10:45)
[2021-08-28] MEDS ORDERED: ceFAZolin 2000MG 2,000 MG/15 ML SYR IV SCH (10:45)
[2021-08-28 11:08] LABS: Hematocrit (blood only) 39.7 % (37-47); Hemoglobin 13.9 g/dL (12.0-16.0); Mean Corpuscular Hemoglobin 29.8 pg (25-34); Mean Platelet Volume 10.1 fL (7.4-10.4); Platelet Count 271 K/uL (130-400); RDW Coefficient of Variation 13.8 % (11.5-14.5); RDW Standard Deviation 42.2 fL (36.4-46.3); Red Blood Count 4.67 M/uL (4.2-5.4); White Blood Count 13.38 K/uL (4.8-10.8)
[2021-08-28] MEDS ORDERED: SODIUM CHLORIDE 0.9% 250 ML IV PRN (11:10)
--- NOTE | 2021-08-28 12:18 | History & Physical Bridge Note ---
Date of Service August 28, 2021 History & Physical Bridge Note I have examined the patient, reviewed the History & Physical and in the interval since the performance of the History & Physical I have noted the following changes of clinical significance: no changes noted
[2021-08-28] MEDS ORDERED: miSOPROStoL 200 MCG TAB ONE (13:34)
[2021-08-28] MEDS ORDERED: MoRPHine SULFATE PF 1 MG/ML 10 ML AMP/VIAL ONE (13:51)
[2021-08-28] MEDS ORDERED: fentaNYL citrate 100 MCG/2 ML VIAL ONE (14:22)
[2021-08-28] MEDS ORDERED: PHENYLEPHRINE 100MCG/ML 5ML SYR ONE (14:31)
[2021-08-28] MEDS ORDERED: ONDANSETRON INJ 2 MG/ML 2 ML VIAL ONE ×2 (14:31→14:42)
[2021-08-28] MEDS ORDERED: ePHEDrine sulfate 50 MG/ML SYR ONE (14:31)
[2021-08-28] MEDS ORDERED: OXYTOCIN 10 UNITS/ML 10ML VIAL ONE ×3 (14:31)
[2021-08-28] MEDS ORDERED: HYDROmorphone INJ 2 MG/ML SYR/VIAL IV PRN (15:17)
[2021-08-28] MEDS ORDERED: ATROPINE SULFATE 0.1 MG/ML 10ML SYR IV PRN (15:17)
[2021-08-28] MEDS ORDERED: ACETAMINOPHEN 1,000 MG/100 ML VIAL IV STA (15:17)
[2021-08-28] MEDS ORDERED: KETOROLAC 30 MG/ML VIAL IV PRN (15:17)
[2021-08-28] MEDS ORDERED: ePHEDrine sulfate 50 MG/ML AMP IV PRN ×2 (15:17→15:18)
[2021-08-28] MEDS ORDERED: fentaNYL citrate 100 MCG/2 ML VIAL IV PRN (15:17)
[2021-08-28] MEDS ORDERED: diphenhydrAMINE 50 MG/ML VIAL IV PRN (15:18)
[2021-08-28] MEDS ORDERED: NALOXONE HCL 1 MG in SODIUM CHLORIDE 0.9% 1000ML 1,000 ML IV PRN (15:18)
[2021-08-28] MEDS ORDERED: NALOXONE HCL 0.08 MG in SYRINGE 1.8 ML IV PRN (15:18)
[2021-08-28] MEDS ORDERED: NALBUPHINE HCL INJ 10 MG/ML AMP IV PRN (15:18)
[2021-08-28] MEDS ORDERED: LACTATED RINGER'S 500 ML IV PRN (15:18)
[2021-08-28] MEDS ORDERED: ONDANSETRON INJ 2 MG/ML 2 ML VIAL IV PRN (15:18)
[2021-08-28] MEDS ORDERED: NALOXONE HCL 0.4 MG/1 ML VIAL/CARP IV PRN (15:18)
[2021-08-28] MEDS ORDERED: MoRPHine SULFATE PF 1 MG/ML 10 ML AMP/VIAL INT SPINAL ONE (15:18)
--- NOTE | 2021-08-28 15:19 | Operative Report ---
PG Post Operative Report Pre & Post Diagnosis Operation Date: 08/28/21 10:30 Pre-Op Diagnosis: Placenta Previa Post-Op Diagnosis: Same; Delivery of a live boy child at 1421 (Main OR 3) I identified the patient and participated in the time-out.: Yes Procedure Operation Date: 08/28/21 10:30 Actual Procedures Primary Low Transverse Section with vertical extension in LD (Delivery of Baby through Abdominal Incision) - Jackeline Lipscomb DO Surgeon Jcakeline Lipscomb DO Dentures Lab Technician Tim Avalos MD Estimated Blood Loss 800 Findings Consistent with Post-Op Diagnosis Viable male , Apgars 8/9. Weight pending, please see nursery notes. Specimens placenta, cord blood, cord gas. Drains Jones clear yellow Anesthesia Type Spinal Complications none Disposition Accompanied Patient To Recovery: No Disposition: L&D Indications 30yo @ 37 0/7, primary as recommended for placenta previa. Description of Procedure The patient was seen in her labor and delivery room, risks benefits and alternatives to surgery were reviewed. Informed consent obtained. Questions were answered. She was taken to the operating room, spinal anesthesia was administered. She was then prepared and draped in the usual sterile fashion in the supine position with a leftward tilt. Timeout was confirmed. A Pfannenstiel skin incision was made with a scalpel, and carried through to the underlying layer of fascia. Fascia was nicked at midline, and this incision was extended bilaterally. The superior aspect of the fascial incision was grasped with Reynaldo clamps x2, elevated off the underlying rectus abdominis muscles, and dissected sharply and bluntly. In similar fashion, the inferior aspect of the fascial incision was dissected. The rectus abdominis muscles were , and the peritoneum was entered bluntly digitally. This was extended bilaterally. The bladder flap was taken down carefully using Metzenbaum scissors. Using a new scalpel, a low transverse uterine incision was created. Clear amniotic fluid noted. Attempt was made to deliver infant, vertical extension made on left lateral aspect of uterine incision. The infant was then delivered from a cephalic presentation using assist of kiwi vacuum with one popoff. The head delivered, followed by shoulders and body. Spontaneous cry on the field. The cord was doubly clamped and cut, and the infant was handed off to the waiting fork repairer. A segment was retained for cord gases. Cord blood was obtained. The placenta was delivered spontaneously intact. The uterus was exteriorized, and cleared of all clots and debris. The hysterotomy incision was reapproximated using 0 Vicryl in a running locked stitch. The incision was ultimately closed using a 3-layer closure, closing the inner 50% of myometrium, followed by outer 50%, then a 3rd imbricating stitch to close the serosa. Posterior uterus was evaluated and normal. The uterus was returned to the abdomen, and gutters were cleared of clots and debris. Excellent hemostasis was observed. The fascial incision was reapproximated using 0 Vicryl in a running stitch. The subcutaneous tissue was irrigated, and reapproximated using 2-0 plain gut in a running stitch. The skin was reapproximated using 4-0 Vicryl in a running subcuticular stitch. Steri-Strips and a bandage were applied. The patient tolerated the procedure well, and will be taken to the recovery area in stable and good condition. I attest to the content of the Intraoperative Record and any orders documented therein. Any exceptions are noted below. OB Procedure Charges 24635
[2021-08-28] MEDS ORDERED: NO NARCOTICS OR SEDATIVES SCH (15:30)
[2021-08-28] MEDS ORDERED: SODIUM CHLORIDE 0.9% 1000ML 1,000 ML IV SCH (15:30)
[2021-08-28 15:39] LABS: Base Excess Cord Arterial Bld 3.9 mEq/L (-9-1.8); CO2 Cord Arterial Blood 48 mmHg (39.1-73.5); HCO3 Cord Arterial Blood 30 mmol/L (19.7-28.5); PO2 Cord Arterial Blood 32 mmHg (4.1-31.7)
[2021-08-28 15:49] LABS: Base Excess Cord Venous Blood 0.4 mEq/L (-7.7-1.9); Cord Venous Blood HCO3 26 mmol/L (18.4-26.8); Cord Venous Blood PCO2 43 mmHg (30.4-57.2); Cord Venous Blood PO2 21 mmHg (14.1-43.3); Cord Venous Blood pH 7.39 (7.20-7.44)
[2021-08-28 15:56] LABS: O2 Saturation Cord Venous Bld < 60.0 % (<68)
--- NOTE | 2021-08-28 17:45 | Anesthesiology Progress Note ---
Date of Service August 28, 2021 Anesthesia Post Procedure Vital Signs Vital Signs: Temp Pulse Resp BP Pulse Ox 08/28/21 17:28 87 97 08/28/21 17:26 80 102/56 L 08/28/21 17:23 80 97 08/28/21 17:18 93 H 97 08/28/21 17:17 86 99/56 L 08/28/21 17:16 81 82/50 L 08/28/21 17:13 59 L 93 08/28/21 17:08 82 95 08/28/21 17:06 67 101/56 L 08/28/21 17:03 57 L 93 08/28/21 16:58 72 94 08/28/21 16:56 56 L 96/51 L 08/28/21 16:53 55 L 90 08/28/21 16:52 58 L 90 08/28/21 16:48 60 94 08/28/21 16:46 64 100/56 L 08/28/21 16:45 60 16 100/56 L 94 08/28/21 16:43 67 95 08/28/21 16:41 55 L 91 08/28/21 16:38 56 L 92 08/28/21 16:36 61 96/56 L 91 08/28/21 16:33 71 97 08/28/21 16:28 85 93 08/28/21 16:26 87 101/62 08/28/21 16:23 79 93 08/28/21 16:18 81 91 08/28/21 16:16 76 96/51 L 08/28/21 16:15 36.4 C L 76 16 96/51 L 95 08/28/21 16:13 64 91 08/28/21 16:10 78 91 08/28/21 16:08 84 94 08/28/21 16:06 76 98/58 L 08/28/21 16:05 76 16 98/58 L 95 08/28/21 16:03 79 93 08/28/21 16:01 82 90 08/28/21 15:58 81 95 08/28/21 15:56 88 94/54 L 08/28/21 15:55 88 16 94/54 L 95 08/28/21 15:53 87 93 08/28/21 15:51 81 90 08/28/21 15:48 91 H 95 08/28/21 15:46 81 102/55 L 08/28/21 15:45 73 16 102/55 L 95 08/28/21 15:43 81 93 08/28/21 15:38 81 98 08/28/21 15:36 91 H 106/60 08/28/21 15:35 82 16 106/60 97 08/28/21 15:33 84 98 08/28/21 15:30 68 93 08/28/21 15:28 82 97 08/28/21 15:26 73 105/64 08/28/21 15:25 67 16 105/64 97 08/28/21 15:23 86 99 08/28/21 15:18 81 98 08/28/21 15:15 36.4 C L 87 18 106/59 L 98 08/28/21 15:14 87 106/59 L 08/28/21 15:13 81 98 08/28/21 13:32 36.7 C 88 18 94/63 L 08/28/21 08:59 86 104/71 08/28/21 08:54 36.6 C 86 16 104/71 Pain Intensity Lower Medial Abdomen: Pain Intensity: 3 Transfer of Care Handoff Completed per policy Notes Mental Status: alert / awake / arousable and participated in evaluation Patient Amnestic to Procedure: Yes Nausea / Vomiting: adequately controlled Pain: adequately controlled Airway Patency, RR, SpO2: stable & adequate BP & HR: stable & adequate Hydration State: stable & adequate Anesthetic Complications: no major complications apparent
[2021-08-28] MEDS ORDERED: MAGNESIUM HYDROXIDE SUSP 30 ML UDC PO PRN (17:57)
[2021-08-28] MEDS ORDERED: HYDROCORTISONE ACETATE 25 MG SUPP PR PRN (17:57)
[2021-08-28] MEDS ORDERED: DIPHTHERIA/TETANUS/PERTUSSIS 0.5 ML SYR/VIAL IM ONE (17:57)
[2021-08-28] MEDS ORDERED: BENZOCAINE 20% AER SPR 82.5 GM CAN EXT PRN (17:57)
[2021-08-28] MEDS ORDERED: SENNA 8.6 MG TAB PO PRN (17:57)
[2021-08-28] MEDS: OXYTOCIN 30 UNITS in LACTATED RINGER'S 1,000 ML IV SCH (19:08)
[2021-08-28] MEDS: DOCUSATE SODIUM 100 MG CAP PO SCH (21:23)
[2021-08-28] MEDS: SIMETHICONE 80 MG CHEW PO SCH (21:23)
[2021-08-29] MEDS: OXYTOCIN 30 UNITS in LACTATED RINGER'S 1,000 ML IV SCH (02:19)
--- NOTE | 2021-08-29 05:10 | Obstetrical Progress Note ---
Date of Service <Tigre Abdi MD - Last Filed: 08/29/21 07:15> August 29, 2021 Assessment & Plan <Tigre Abdi MD - Last Filed: 08/29/21 07:15> (1) delivery delivered: 30 yo now POD1 from [facility] at 37 wks for complete placenta previa -Continue routine care -Vitals reviewed- HDS, afebrile -Blood type A+, GBS-, Rubella immune -Encourage ambulation -Remove Rosa -Advance to regular diet -Pain control with ibuprofen, oxycodone PRN -Encourage -Hgb 11.2 today, asymptomatic -F/u in 6 weeks with OB <Alexandra Avalos MD - Last Filed: 08/29/21 07:13> (1) delivery delivered: Subjective <Tigre Abdi MD - Last Filed: 08/29/21 07:15> Ambulation: limited ambulation Voiding: rosa catheter in place Passing Gas:: No Diet Tolerance:: clear liquids Lochia:: Small Feeding Type:: breast feeding Current Pain Level(1-10): 0 Pt doing well overall, no acute complaints or distress. Pain well controlled with medication. Has not ambulated, passed gas yet. Rosa in place. Would like to try breakfast today. Review of Systems Denies fever/chills. Denies dyspnea, cough. Denies chest pain. Denies breast pain or discharge. Denies dysuria. Denies headache. Denies back pain. Physical Exam <Tigre Abdi MD - Last Filed: 08/29/21 07:15> General: Alert, oriented, no acute distress Cardiac: Regular rate and rhythm, normal S1, S2. No murmurs noted. Respiratory: Clear to auscultation b/l with good air flow entry, symmetric chest rise and fall. No wheezes or crackles. No increased work of breathing or accessory muscle use. Abdomen: Soft, nontender, nondistended. Fundus firm and palpable at 1 cm below umbilicus. Surgical dressing clean, dry without erythema, warmth or drainage, slight tenderness. No guarding or rebound. Skin: No rashes or lesions Extremities: Warm, dry and well-perfused with capillary refill <2s b/l. No lower extremity edema, erythema or swelling Results & Data ([facility]) <Tigre Abdi MD - Last Filed: 08/29/21 07:15> Vital Signs (Past 12 Hours) Vital Signs Temp Pulse Pulse Resp BP BP Pulse Ox 08/29/21 03:31 36.7 C 83 14 88/53 L 94 08/29/21 02:00 18 98 08/29/21 01:00 18 99 08/29/21 00:00 18 98 08/28/21 23:22 36.5 C 66 14 92/58 L 95 08/28/21 23:00 18 99 08/28/21 22:30 16 99 08/28/21 21:35 16 99 08/28/21 20:30 16 99 08/28/21 19:35 36.2 C L 75 14 94/57 L 94 08/28/21 19:30 18 99 08/28/21 18:15 16 96 08/28/21 17:28 87 97 08/28/21 17:26 80 102/56 L 08/28/21 17:23 80 97 08/28/21 17:18 93 H 97 08/28/21 17:17 86 99/56 L 08/28/21 17:16 81 82/50 L 08/28/21 17:15 36.4 C L 87 16 99/56 L 95 08/28/21 17:13 59 L 93 08/28/21 17:08 82 95 <Alexandra Avalos MD - Last Filed: 08/29/21 07:13> Co-Signing Physician Notes Resident Physician Supervision Note: I interviewed and examined the patient. Discussed with Dr. Abdi and agree with findings and plan as documented in the note. Any exceptions or clarifications are listed here: [ ] Documented By: Alexandra Avalos MD, FACOG Resident Activity Tracking <Tigre Abdi MD - Last Filed: 08/29/21 07:15> Resident Involvement: Resident Care Provided Care Provided: OB Delivery
[2021-08-29] MEDS ORDERED: CITRIC ACID/SODIUM CITRATE 15 ML UDC PO SCH (06:00)
[2021-08-29 06:30] LABS: Hematocrit (blood only) 32.9 % (37-47); Hemoglobin 11.2 g/dL (12.0-16.0); Mean Corpuscular Hemoglobin 29.6 pg (25-34); Mean Platelet Volume 10.1 fL (7.4-10.4); Platelet Count 217 K/uL (130-400); RDW Standard Deviation 43.8 fL (36.4-46.3); Red Blood Count 3.78 M/uL (4.2-5.4); White Blood Count 15.24 K/uL (4.8-10.8)
[2021-08-29 06:53] LABS: Basophils # (auto) 0.03 K/uL (0-0.2); Basophils % (auto) 0.2 %; Eosinophils # (auto) 0.06 K/uL (0-0.5); Eosinophils % (auto) 0.4 %; Immature Granulocytes # (auto) 0.07 K/uL (0.00-0.02); Immature Granulocytes % (auto) 0.5 %; Lymphocytes # (auto) 2.02 K/uL (1.2-3.4); Lymphocytes % (auto) 13.3 %; Monocytes # (auto) 1.19 K/uL (0.11-0.59); Monocytes % (auto) 7.8 %; Neutrophils # (auto) 11.87 K/uL (1.4-6.5); Neutrophils % (auto) 77.8 %
[2021-08-29] MEDS: FERROUS SULFATE 325 MG TAB PO SCH (08:24)
[2021-08-29] MEDS: DOCUSATE SODIUM 100 MG CAP PO SCH ×2 (08:24→20:29)
[2021-08-29] MEDS: SIMETHICONE 80 MG CHEW PO SCH ×5 (08:24→21:42)
[2021-08-29] MEDS: PRENATAL VITAMIN 1 TAB PO SCH (08:24)
[2021-08-29] MEDS ORDERED: ONDANSETRON INJ 2 MG/ML 2 ML VIAL IV PRN (09:18)
[2021-08-29] MEDS ORDERED: oxyCODONE/ACETAMINOPHEN 5mg/325mg TAB PO PRN (09:18)
[2021-08-29] MEDS ORDERED: DC INTRASPINAL MORPHINE SCH (09:18)
[2021-08-29] MEDS ORDERED: PROMETHAZINE HCL 25 MG in SODIUM CHLORIDE 0.9% 50 ML IV PRN (09:18)
[2021-08-29] MEDS ORDERED: diphenhydrAMINE 50 MG/ML VIAL IV PRN (09:18)
[2021-08-29] MEDS ORDERED: KETOROLAC 30 MG/ML VIAL IV PRN (09:18)
[2021-08-29] MEDS ORDERED: diphenhydrAMINE Capsule 25 MG CAP PO PRN (09:18)
[2021-08-29] MEDS: IBUPROFEN 600 MG TAB PO PRN ×2 (15:36→20:28)
[2021-08-29] MEDS ORDERED: bisacodyL 5 MG TABEC PO SCH (20:00)
[2021-08-30] MEDS: IBUPROFEN 600 MG TAB PO PRN ×2 (03:40→08:41)
[2021-08-30 06:43] LABS: Hematocrit (blood only) 35.2 % (37-47); Hemoglobin 11.9 g/dL (12.0-16.0)
--- NOTE | 2021-08-30 08:31 | Obstetrical Progress Note ---
Date of Service August 30, 2021 Assessment & Plan (1) Encounter for supervision of normal in multigravida: POD#2 doing well, desires discharge home. Rx percocet to [facility] - not sure if she's going to pick this up, but it will be available. Incision CDI. Subjective Ambulation: ambulating normally Voiding: no voiding problems Diet Tolerance:: regular diet Lochia:: Moderate Review of Systems All systems reviewed & are unremarkable except as noted in HPI & below Physical Exam Constitutional WD/WN, vitals as above no acute distress Respiratory normal respiratory effort Cardiovascular Rate/Rhythm: regular rate and regular rhythm Gastrointestinal (Abdomen) Inspection/Auscultation: abdomen normal to inspection; abdomen not distended Percussion/Palpation: abdomen soft Genitourinary OB Exam Abdomen: + fundal height Fundus: + firm; not tender Results & Data ([facility]) Vital Signs (Past 12 Hours) Vital Signs Temp Pulse Resp BP Pulse Ox 08/30/21 07:33 36.4 C L 81 16 96/65 L 08/30/21 03:55 36.7 C 65 14 99/66 L 97 08/29/21 23:06 36.7 C 75 16 106/66 96 08/29/21 20:30 36.8 C 81 18 100/65
--- NOTE | 2021-08-30 08:34 | Discharge Summary ---
Date of Service August 30, 2021 Admission HPI Per Admitting Provider 30yo with EDC 09/18/21 Patient history of Aortic Bicuspid Valve -f/u with cardiology 08/25 -needs echo, sched jun 02, psu - wnl, rec routine echo, consider childhood f/u for hx cardiomyopathy (SLN) Placenta previa--recheck 32wks - still present at 32 wks -deliver at 36-37 6/7 per acog -follow up u/s at 36wks C/S SCHEDULED FOR 08/28/[address] LIPSCOMB AND [address] MOREL ASSIST. NEEDS COVID TEST ON 08/26/2021-ORDERED s/p J&J vaccine, Pfizer booster Jose had flu shot. Discharge Data Consultations 08/28/21 10:28 Consult Anesthesiology Stat 08/28/21 10:35 Consult Anesthesiology Stat Procedures Performed Operation Date: 08/28/21 10:30 Actual Procedures p Section in LD (Delivery of Baby through Abdominal Incision) - Jackeline Lipscomb, Hospital Course (1) Encounter for supervision of normal in multigravida: Admitted for section due to placenta previa. Routine postop recovery, DC home on POD2. Coding Level of Care Code None Diagnoses Encounter for supervision of normal in multigravida Z34.80
[2021-08-30] MEDS: SIMETHICONE 80 MG CHEW PO SCH (08:43)
[2021-08-30] MEDS: FERROUS SULFATE 325 MG TAB PO SCH (08:43)
[2021-08-30] MEDS: PRENATAL VITAMIN 1 TAB PO SCH (08:43)
[2021-08-30] MEDS: DOCUSATE SODIUM 100 MG CAP PO SCH (08:43)
[2021-08-30] MEDS ORDERED: bisacodyL 10 MG SUPP PR PRN (15:11)
== END 2021-08-30 11:40 | disposition home or self-care (01) | DRG 787 ==
LOC: 4S1 08:33 → EDSTATUS 10:30 → 4S2 17:59